=== PATIENT | female | born 2000 | race Caucasian/White ===

== ENCOUNTER 2021-09-29 13:03 | Emergency (ER) | payer OTHER, SELFPAY ==
[2021-09-29] MEDS ORDERED: cefTRIAXone\\ROCEPHIN 500 MG VIAL ONE (14:03)
[2021-09-29] MEDS ORDERED: Azithromycin 250 MG TAB ONE (14:04)
[2021-09-29] MEDS ORDERED: Sterile Water 10 ML ONE (14:08)
[2021-09-29 14:16] LABS: Bilirubin Neg (Negative); Blood, Urine Negative (Negative); Clarity Slightly Cloudy (Clear); Glucose, Urine (Dipstick) Normal (Negative); Ketone, Urine Negative (Negative); Leukocyte 25 (Negative); Nitrite Negative (Negative); Protein, Urine (Dipstick) Negative (Neg-Trace); Specific Gravity, Urine 1.025 (1.002-1.036); Urobilinogen Normal mg/dL (Less than 2)
[2021-09-29 14:20] LABS: Pregnancy Test - Urine (BHCG) Negative (Negative); Pregu Control Background? CLEAR/WHITE (CLR/WHITE); Pregu Control Bar Appear? YES (CONTROL BAR); Specific Gravity 1.025 (1.002-1.036)
[2021-09-29 14:30] LABS: RBC/HPF 0-3 HPF (0-3)
[2021-09-29 14:31] LABS: Bacteria/HPF 2+ HPF (None Seen)
[2021-09-30 19:29] LABS: Chlamydia by PCR Not Detected (NotDetected); GC by PCR Not Detected (NotDetected)
== END 2021-09-29 15:08 | disposition home or self-care (01) ==
LOC: CSHERS 13:03
DX: N73.9 Female pelvic inflammatory disease, unspecified (principal); N83.201 Unspecified ovarian cyst, right side; N39.0 Urinary tract infection, site not specified; F17.210 Nicotine dependence, cigarettes, uncomplicated
CPT/HCPCS: 76856; 81003; 81015; 81025; 87077; 87086; 87480; 87491; 87510; 87591; 87660; 96372; J0696

== ENCOUNTER 2023-09-18 15:26 | Day surgery (SDC) | payer OTHER, MEDICAID ==
[2023-09-18 15:55] VITALS: BMI 44.2
[2023-09-18 16:58] LABS: Bilirubin Neg (Negative); Blood, Urine Negative (Negative); Clarity Clear (Clear); Glucose, Urine (Dipstick) Normal (Negative); Ketone, Urine Negative (Negative); Leukocyte Negative (Negative); Nitrite Negative (Negative); Protein, Urine (Dipstick) Negative (Neg-Trace); Urobilinogen Normal mg/dL (Less than 2)
[2023-09-18 17:42] LABS: Bacteria/HPF Rare-Few HPF (None Seen); CAUTI Indications for Culture Pelvic or flank pain; RBC/HPF None Seen HPF (0-3); Squamous Epithelial 0-3 HPF (0-3); Urine Culture Reflex No No; WBC/HPF 0-3 HPF (0-3)
== END 2023-09-18 18:03 | disposition home or self-care (01) ==
LOC: CSHLD/OP 15:26
PROVIDERS: ATTEND Obstetrics & Gynecology
DX: O99.891 Other specified diseases and conditions complicating pregnancy (principal); R10.11 Right upper quadrant pain; O99.213 Obesity complicating pregnancy, third trimester; Z79.899 Other long term (current) drug therapy; Z3A.34 34 weeks gestation of pregnancy
CPT/HCPCS: 81001

== ENCOUNTER → 2025-03-01 | Day surgery (SDC) | payer MEDICAID, SELFPAY ==
[~2025-03-01] MED LIST: HYDROcodone/Acetaminophen 5/325 mg Tablet ONE; Iopamidol 0 ML ONE; Iopamidol 300 61% 100 ML VIAL FS ONE; Ketorolac Tromethamine 30 MG (1 mL) VIAL ONE; Ondansetron PF 4 MG/2 ML Vial ONE; PROPOFOL 40 ML ONE; cefTRIAXone (ROCEPHIN) 2 GM VIAL ONE
[2025-03-01 18:09] LABS: #Basophils 0.05 10x3/uL (0.0-0.2); #Eosinophils 0.11 10x3/uL (0.0-0.5); #Monocytes 0.55 10x3/uL (0.0-1.1); #Neutrophils 9.31 10x3/uL (1.5-8.4); %Basophils 0.4 % (0.0-2.0); %Eosinophils 0.9 % (0.0-6.0); %Lymphocytes 17.6 % (18.0-47.0); %Monocytes 4.5 % (0.0-10.0); %Neutrophils 76.4 % (40.0-75.0); Hematocrit 38.9 % (34.9-44.5); Hemoglobin 13.3 g/dL (12.0-15.5); Mean Corpuscular Hemoglobin 28.8 pg (27.0-33.0); Mean Corpuscular Volume 84.2 fL (81.6-98.3); Platelet Count 323 10x3/uL (150-450); Red Blood Cell (RBC) Count 4.62 10x6/uL (3.90-5.03); White Blood Cell (WBC) Count 12.18 10x3/uL (3.5-10.5)
[2025-03-01 18:18] LABS: BHCG - Serum Negative (NEGATIVE); Pregs Control Background? CLEAR/WHITE (CLR/WHITE); Pregs Control Bar Appear? YES (CONTROL BAR)
[2025-03-01 18:25] LABS: ALT (SGPT) 45 U/L (Less than 34); AST (SGOT) 32 U/L (11-34); Albumin 4.6 g/dL (3.1-4.5); Alkaline Phosphatase 69 U/L (40-110); Anion Gap 15 mmol/L (10-20); BUN (Urea Nitrogen) 11 mg/dL (7.0-18.7); Bilirubin, Total 0.3 mg/dL (0.3-1.2); Calc. Creatinine Clearance 0 mL/min (70-130); Calcium 9.3 mg/dL (7.8-10.44); Carbon Dioxide 22 mmol/L (22-29); Chloride 101 mmol/L (98-107); Globulin 4.0 g/dL (2.4-3.5); Glucose 97 mg/dL (70-105); Lipase 15 U/L (8-78); Potassium 3.6 mmol/L (3.5-5.1); Sodium 134 mmol/L (136-145)
[2025-03-01 19:53] LABS: Glucose, Urine (Dipstick) Normal (Negative); Leukocyte Negative (Negative); Protein, Urine (Dipstick) 30 mg/dl (Neg-Trace); Specific Gravity, Urine 1.015 (1.005-1.030)
[2025-03-01 20:06] LABS: Bacteria/HPF 2+ HPF (None Seen); CAUTI Indications for Culture Pelvic or flank pain; Mucous/LPF 2+ LPF (<2+)
[2025-03-01 20:07] LABS: Urine Culture Reflex No No
== END ==
LOC: CSHERS 17:14 → CSHSDC/OP 21:16
PROVIDERS: ATTEND Student in an Organized Health Care Education/Training Program
DX: N13.2 Hydronephrosis with renal and ureteral calculous obstruction (principal); N21.0 Calculus in bladder; E66.01 Morbid (severe) obesity due to excess calories
CPT/HCPCS: 74177; 80053; 81001; 83690; 84703; 85025; 87086; 96365; 96375; C2617; J0696; J1100; J1885; J2250; J2405; J2704; J3010; Q9967